=== PATIENT | female | born 2000 | race Caucasian/White ===

== ENCOUNTER 2019-11-02 08:59 | Inpatient (IN) ==
[2019-11-02] MEDS ORDERED: OXYTOCIN 30 UNITS/500 ML BAG IV PRN ×2 (10:29→14:51)
[2019-11-02] MEDS: LACTATED RINGER'S 1,000 ML IV PRN ×2 (10:52→12:27)
[2019-11-02 10:53] LABS: Hematocrit (blood only) 31.1 % (37-47); Hemoglobin 9.3 g/dL (12.0-16.0); Mean Corpuscular Hemoglobin 23.4 pg (25-34); Mean Corpuscular Volume 78.3 fL (80-100); Mean Platelet Volume 10.1 fL (7.4-10.4); Platelet Count 318 K/uL (130-400); RDW Coefficient of Variation 15.3 % (11.5-14.5); RDW Standard Deviation 44.6 fL (36.4-46.3); Red Blood Count 3.97 M/uL (4.2-5.4)
[2019-11-02 11:04] LABS: Mean Corpuscular Hgb Conc 29.9 g/dL (32-36)
[2019-11-02] MEDS ORDERED: NALOXONE HCL 0.4 MG/1 ML VIAL/CARP IV PRN (11:20)
[2019-11-02] MEDS ORDERED: ePHEDrine sulfate 50 MG/ML AMP IV PRN (11:20)
[2019-11-02] MEDS ORDERED: ONDANSETRON INJ 2 MG/ML 2 ML VIAL IV PRN (11:20)
[2019-11-02] MEDS ORDERED: NALOXONE HCL 1 MG in SODIUM CHLORIDE 0.9% 1000ML 1,000 ML IV PRN (11:20)
[2019-11-02] MEDS ORDERED: DiphenhydrAMINE HCL 50 MG/ML VIAL IV PRN (11:20)
[2019-11-02] MEDS ORDERED: fentaNYL 2MCG/ML ROPIV 1.25MG/ML 100 ML BAG EPI PRN (11:20)
--- NOTE | 2019-11-02 11:20 | Anesthesiology Consultation ---
Date of Service November 02, 2019 Assessment & Plan ASA ASA2 Proposed Anesthesia Anesthesia Type: Labor Epidural Risk / Benefits Reviewed With: PT / POA / Parent / Guardian, Accepts Plan and Informed Consent Obtained Additional Comments: pt has done poorly with opioids in the past (hives). Our pharmacy does not make different mixtures for epidurals. I spoke to the patient about this and she is ok to proceed. Nursing to monitor. History Height/Weight Height: 5 ft 7 in Weight: 74.389 kg Allergies Allergy/AdvReac Type Severity Reaction Status Date / Time hydromorphone [From Dilaudid] Allergy Hives Verified 11/02/19 09:41 ketorolac [From Toradol] Allergy Hives Verified 11/02/19 09:41 Medications Home Medications Medication Instructions Recorded Confirmed Last Taken labetalol 100 mg PO BID 11/02/19 11/02/19 11/01/19 09:00 prenat.vits,suresh,ocw-[id number]-[id number] 1 tab PO DAILY 11/02/19 11/02/19 11/01/19 08:00 [ Vitamin] Active Medications Generic Name Dose Route Start Last Admin Trade Name Freq PRN Reason Stop Dose Admin Lactated Ringer's 1,000 mls @ 125 mls/hr 11/02/19 10:29 11/02/19 10:52 Lr IV 11/04/19 10:28 999 mls/hr .Q8H PRN Administration L&D Protocol Protocol Past Medical History Medical History Lipoma of lower back Exercise / Class Metabolic Activity II 4-5 Yardwork/Stairs/Walk up hill Past Family History Family History Other No pertinent family history Past Anesthesia History No Hx of Anesthesia Complications and No Family Hx of Anesthesia Complications History of PONV No Hx of PONV and No Hx of Motion Sickness Social History Smoking Status: Never smoker Hx Alcohol Use: No Hx Substance Use: No Review of Systems denies fever/cough/ colds/ chest pain/ SOB/ RORY Constitutional: no fever and no chills Respiratory: no cough and no dyspnea denies RORY Cardiovascular: no chest pain and no dyspnea on exertion Physical Exam Vital Signs Last Vital Signs Temp 37.3 C 11/02/19 09:16 Pulse 106 H 11/02/19 11:53 Resp 20 11/02/19 09:16 BP 142/78 H 11/02/19 11:52 Pulse Ox 99 11/02/19 11:53 ENMT Mouth: no TMJ abnormality and no dentition abnormality Thyromental Distance: > or= 3.5 Finger Breadths Mallampati Class: II Neck neck extension not limited Respiratory normal respiratory effort; no respiratory distress Auscultation: lungs clear to auscultation bilaterally Cardiovascular Rate/Rhythm: regular rate and regular rhythm Neurologic moves all extremities Psychiatric Orientation: alert and oriented x 3 Testing Laboratory Results 11/02/19 10:43 Blood Type A Negative 11/02/19 10:43 Antibody Screen NEGATIVE 11/02/19 10:43
[2019-11-02] MEDS ORDERED: BUPIVACAINE 0.25% 30 ML VIAL ONE (11:22)
[2019-11-02] MEDS ORDERED: fentaNYL citrate 100 MCG/2 ML VIAL ONE (11:22)
[2019-11-02] MEDS ORDERED: ePHEDrine sulfate 50 MG/ML AMP ONE (11:22)
[2019-11-02] MEDS ORDERED: fentaNYL 2MCG/ML ROPIV 1.25MG/ML 100 ML BAG EPI ONE (11:22)
[2019-11-02 11:31] LABS: Hepatitis B Surface Antigen Neg (Neg); Rubella IgG Antibody Immune (Immune)
[2019-11-02] MEDS: LABETALOL HCL 100 MG TAB PO SCH ×2 (13:00→18:46)
[2019-11-02] MEDS ORDERED: BENZOCAINE 20% AER SPR 82.5 GM CAN EXT PRN (14:51)
[2019-11-02] MEDS ORDERED: ACETAMINOPHEN 325 MG TAB PO PRN (14:51)
[2019-11-02] MEDS ORDERED: bisacodyL 10 MG SUPP PR PRN (14:51)
[2019-11-02] MEDS ORDERED: IBUPROFEN 600 MG TAB PO PRN (14:51)
[2019-11-02] MEDS ORDERED: SUPERCREAM 0.870% 15 GM JAR EXT PRN (14:51)
[2019-11-02] MEDS ORDERED: ACETAMINOPHEN W/CODEINE #3 1 TAB PO PRN (14:51)
[2019-11-02] MEDS ORDERED: HYDROCORTISONE ACETATE 25 MG SUPP PR PRN (14:51)
[2019-11-02] MEDS ORDERED: OXYCODONE/ACETAMINOPHEN 5mg/325mg TAB PO PRN (14:51)
[2019-11-02] MEDS ORDERED: DIPHTHERIA/TETANUS/PERTUSSIS 0.5 ML SYR/VIAL IM ONE (14:51)
--- NOTE | 2019-11-02 16:31 | Anesthesia Procedure Note ---
Date of Service November 02, 2019 Anesthesia Post Epidural Note Vital Signs Vital Signs: Temp Pulse Resp BP Pulse Ox 37.2 C 108 H 20 144/66 H 100 11/02/19 13:14 11/02/19 16:26 11/02/19 15:41 11/02/19 16:26 11/02/19 14:53 Notes Mental Status: alert / awake / arousable Nausea / Vomiting: adequately controlled Pain: adequately controlled Airway Patency, RR, SpO2: stable & adequate BP & HR: stable & adequate Hydration State: stable & adequate Neuraxial Anesthesia: was administered and sensory block is resolving Anesthetic Complications: no major complications apparent Epidural: Removed without complications and With tip intact
[2019-11-02] MEDS: cefOXitin 2,000 MG in DEXTROSE 5% 50 ML IV SCH (19:09)
[2019-11-02 21:11] LABS: Appearance Urine Clear (Clear); Bacteria Urine Automated Negative (Negative); Bilirubin Urine Negative (Negative); Blood Urine 3+ (Negative); Cast Urine Automated 0 /lpf (0-5); Color Urine Yellow; Glucose Urine UA Negative (Negative); Ketones Urine Negative (Negative); Leukocyte Esterase Urine Negative (Negative); Nitrite Urine Negative (Negative); Protein Urine Negative (Negative); Specific Gravity Urine 1.008 (1.000-1.030); Urobilinogen Urine Negative (Negative)
[2019-11-02] MEDS: DOCUSATE SODIUM 100 MG CAP PO SCH (21:13)
--- NOTE | 2019-11-02 21:19 | Operative Report (OR) ---
DATE OF OPERATION: 11/02/2019 She is a 2, para 1. Blood type is A negative, group B strep negative, admitted at 38 weeks 5 days. She had some hypertension with her . She was placed on labetalol 100 mg 3 times a day; however, she has not been taking her medications. When she was admitted, her pressure was elevated at 142/79. She was having contractions and she was 6 cm dilated. Soon after admission, she received epidural from which she got good pain relief. She then had the membranes ruptured surgically. Fluid at this time was clear. She went on to full dilatation, pushed out a live male infant via right occiput anterior position over an intact perineum. So tight nuchal cord was reduced over the head. was suctioned from the mouth and the nose and the body was delivered without difficulty. was a little bit limp at , so we stripped the cord, clamped the cord, and sent it over immediately to the nurses. He was given some oxygen. Cord blood was taken. With IV Pitocin running, the placenta was removed intact. Inspection of the perineum revealed a sulcus laceration at about 9 o'clock that went into the labia minora. This was infiltrated with local and then approximated with a running 2-0 Vicryl. Following this, hemostasis was good. Sponges were removed. Vaginal examination revealed no hematoma formation or sponges in the rectum. It should be noted that during the pushing stage, she did have some problems with decelerations. This was managed with mask oxygen. Once or twice, we had to wait between contractions for the heart beat to return over 100. A 1- and 5-minute Apgars were 4 and 9 respectively. Estimated blood loss was 200 mL. I attest to the content of the Intraoperative Record and any orders documented therein. Any exception s are noted below.
[2019-11-03] MEDS: cefOXitin 2,000 MG in DEXTROSE 5% 50 ML IV SCH ×5 (01:08→19:24)
[2019-11-03 05:44] LABS: Hematocrit (blood only) 24.9 % (37-47); Hemoglobin 7.7 g/dL (12.0-16.0); Mean Corpuscular Hemoglobin 23.5 pg (25-34); Mean Corpuscular Hgb Conc 30.9 g/dL (32-36); Mean Corpuscular Volume 76.1 fL (80-100); Platelet Count 253 K/uL (130-400); RDW Coefficient of Variation 15.4 % (11.5-14.5); RDW Standard Deviation 43.2 fL (36.4-46.3); Red Blood Count 3.27 M/uL (4.2-5.4); White Blood Count 23.27 K/uL (4.8-10.8)
[2019-11-03] MEDS: FERROUS SULFATE 325 MG TAB PO SCH (07:29)
[2019-11-03] MEDS: PRENATAL VITAMIN 1 TAB PO SCH (07:29)
[2019-11-03] MEDS: DOCUSATE SODIUM 100 MG CAP PO SCH ×2 (07:29→21:05)
[2019-11-03] MEDS: LABETALOL HCL 100 MG TAB PO SCH ×2 (07:31→19:39)
--- NOTE | 2019-11-03 11:18 | Obstetrical Progress Note ---
Date of Service November 03, 2019 Assessment & Plan Admission and Anticipated Discharge Date Admission Date: November 02, 2019 Physical Exam Physical Exam: abdomen soft and non tender no calf tenderness ambulating well vaginal bleeding scant hgb 7.7 urine culture positive for e coli patient is on mefoxin 2 gram every 6 hours Results & Data ([facility]) Vital Signs (Past 12 Hours) Vital Signs Temp Pulse Pulse Resp BP Pulse Ox 11/03/19 09:00 80 128/75 11/03/19 07:30 36.9 C 111 H 16 125/74 11/03/19 04:25 36.9 C 88 18 129/85 98 11/02/19 23:30 36.9 C 88 18 119/74 98
[2019-11-03] MEDS ORDERED: bisacodyL 5 MG TABEC PO SCH (20:00)
[2019-11-04] MEDS: cefOXitin 2,000 MG in DEXTROSE 5% 50 ML IV SCH ×2 (01:05→07:12)
[2019-11-04 06:56] LABS: Hematocrit (blood only) 25.3 % (37-47); Hemoglobin 7.7 g/dL (12.0-16.0)
[2019-11-04] MEDS: PRENATAL VITAMIN 1 TAB PO SCH (08:09)
[2019-11-04] MEDS: DOCUSATE SODIUM 100 MG CAP PO SCH (08:09)
[2019-11-04] MEDS: LABETALOL HCL 100 MG TAB PO SCH (08:12)
[2019-11-04] MEDS: FERROUS SULFATE 325 MG TAB PO SCH (08:13)
--- NOTE | 2019-11-04 08:48 | Obstetrical Progress Note ---
Date of Service November 04, 2019 Assessment & Plan Admission and Anticipated Discharge Date Admission Date: November 02, 2019 Physical Exam Physical Exam: abdomen soft and non tender no calf tenderness ambulating well vaginal bleeding scant hgb 7.7 blood cultures negative urine culture positive e coli sensitive to all medications tested Results & Data ([facility]) Vital Signs (Past 12 Hours) Vital Signs Temp Pulse Resp BP 11/03/19 23:10 36.8 C 106 H 16 116/72
--- NOTE | 2019-11-04 09:49 | Discharge Summary (DS) ---
Followed in our office for care and delivery. She developed some hypertension later in her course, was started on labetalol. On Sunday, she called and said she was having contractions every 5 minutes. She came in for evaluation. Her pressure was elevated and she was 6 cm dilated. She eventually then had epidural for pain control. Membranes were ruptured, fluid was clear. She then delivered a live infant via direct occiput anterior position over an intact perineum. Apgars were good. Post-delivery, she had an elevated temperature, we did a catheterized urine and 2 blood cultures and started immediately on Mefoxin 2 grams every 6 hours. The blood cultures came back negative, but urine cultures came back positive for E. coli sensitive to all medications tested. She received Mefoxin every 6 hours while she was in the hospital. She remained afebrile. Her hemoglobin was stable at 7.7. Her pre-delivery hemoglobin was only 9.3. She was instructed to take Augmentin 875 twice a day for 10 days when she went home, also to start back on her labetalol and to call if she had a temperature over 100 or any heavy bleeding and return for her 6-week checkup.
== END 2019-11-04 11:05 | disposition home or self-care (01) | DRG 807 ==
LOC: OPB 08:59 → 4S1 09:00 → 4S2 18:18